=== PATIENT | male | born 1960 | race Caucasian/White ===

== ENCOUNTER 2018-05-19 09:11 | Outpatient (CLI) | payer OTHER ==
--- NOTE | 2018-05-19 13:06 | Ultrasound Report ---
Reason: EPIGASTRIC PAIN, RUQ PAIN Procedure Date: 05/19/2018 Accession Number: [id number] / [id number] Procedure: US - Abdomen Limited CPT Code: FULL RESULT: EXAM: ABDOMEN ULTRASOUND LIMITED, RUQ EXAM DATE: 05/19/2018 10:09 AM. CLINICAL HISTORY: Epigastric pain, RUQ pain. COMPARISON: None. TECHNIQUE: Real-time scanning was performed with static images obtained. FINDINGS: Liver: Hepatic parenchymal echotexture is mildly echogenic and heterogeneous. Within the left lobe of the liver is a 4.1 x 4.3 x 3.8 cm cyst and a 1.4 x 0.7 x 1.5 cm cyst containing septations. Within the right lobe of the liver is a superior right hepatic lobe 1.5 x 0.9 x 1.2 cm cyst and a 1.2 x 1.2 x 0.9 cm cyst and in the inferior right lobe a 1.6 x 2.0 x 1.7 cm cyst. No solid hepatic lesions. The liver is upper normal in size 17.3 cm. Main portal vein flow: Hepatopetal. Gallbladder: 2 mobile gallstones are present in the gallbladder, the largest measuring 9 mm. No gallbladder wall thickening. Eccentric anterior gallbladder wall thickening measuring up to 8 mm without focal mass. No increased vascularity. 4 mm polyp is seen in the fundus of the gallbladder. Biliary System: CBD measures 3 mm. No intrahepatic or extrahepatic ductal dilatation. Other: Right kidney is normal in contour and echotexture and measures 11.3 cm. Exophytic anterior mid right renal 1.2 x 1.2 x 1.1 cm cyst is seen. No hydronephrosis. IMPRESSION: 1. Mildly echogenic and heterogeneous hepatic parenchyma. Findings, while nonspecific, can be seen with fatty replacement. Hepatic cysts. No solid hepatic lesions. 2. Cholelithiasis and gallbladder polyp. 3. No biliary ductal dilatation. 4. Right renal 1.2 cm cyst. RADIA
== END 2018-05-19 09:12 | disposition home or self-care (01) ==
LOC: DI 09:11
PROVIDERS: ATTEND Surgery
DX: R10.11 Right upper quadrant pain (principal); R10.13 Epigastric pain; K80.20 Calculus of gallbladder without cholecystitis without obstruction; K76.89 Other specified diseases of liver; N28.1 Cyst of kidney, acquired
CPT/HCPCS: 76705

== ENCOUNTER 2018-06-23 09:03 | Day surgery (SDC) | payer OTHER ==
--- NOTE | 2018-06-23 09:39 | ANESTHESIA ---
Pre-Anesthesia VS, & Labs - Diagnosis cholelithiasis - Procedure laparoscopic cholecystecomy Vital Signs: Temp Pulse Resp BP Pulse Ox 36.8 C 80 16 132/91 H 100 06/23/18 09:13 06/23/18 09:13 06/23/18 09:13 06/23/18 09:13 06/23/18 09:13 Height 5 ft 9 in Weight (kg) 87.5 kg - NPO >8 hours - Lab Results Lab results reviewed: Yes Home Medications and Allergies Allergies/Adverse Reactions: Allergies Allergy/AdvReac Type Severity Reaction Status Date / Time codeine AdvReac Nausea Verified 06/22/18 14:16 Anes History & Medical History - Anesthetic History Anesthesia Complications: reports: Post-Operative Nausea/Vomiting Family history of Anesthesia Complications: Denies Family history of Malignant Hyperthermia: Denies - Medical History Cardiovascular: reports: None Pulmonary: reports: None Gastrointestinal: reports: Cholelithiasis Urinary: reports: None Musculoskeletal: reports: None Endocrine/Autoimmune: reports: None Skin: reports: None - Surgical History General: Colonoscopy, Other Eyes Ears Nose Throat (EENT): Tonsil/Adenoidectomy Exam General: Alert Dental: Other (crown) Mouth Openin Fingerbreadth Neck Mobility: Normal Mallampati classification: II Thyromental Distance: greater than 6 cm Respiratory: Lungs clear, Normal breath sounds, No respiratory distress, No accessory muscle use Cardiovascular: Regular rate, Normal S1, Normal S2, No murmurs Mental/Cognitive Status: Alert/Oriented X3, Normal for patient Cognitive Status: Within normal limits Plan Anesthesia Type: General Consent for Procedure(s) Verified and Reviewed: Yes Code Status: Attempt Resuscitation ASA classification: 1-Healthy patient Is this case an emergency?: No
[2018-06-23] MEDS ORDERED: LACTATED RINGERS 1,000 ML IV ONE ×2 (09:42→13:09)
[2018-06-23] MEDS ORDERED: ceFAZolin 2 GM/50 ML 2 GM/50 ML BAG IV ONE ×2 (09:48→09:49)
[2018-06-23] MEDS ORDERED: SCOPOLAMINE PATCH TOP ONE (10:02)
[2018-06-23] MEDS ORDERED: BUPIVACAINE 0.5% PF 30 ML VIAL ONE (11:04)
[2018-06-23] MEDS ORDERED: HYDROCORTISONE SUCCINATE 100 MG/2 ML VIAL IVP ONE (12:00)
[2018-06-23] MEDS ORDERED: KETOROLAC 30 MG/ML VIAL IVP ONE (12:00)
[2018-06-23] MEDS ORDERED: ONDANSETRON 4 MG/2 ML VIAL IVP ONE (12:00)
[2018-06-23] MEDS ORDERED: ACETAMINOPHEN 1,000 MG/100 ML 100 ML IV ONE (12:00)
[2018-06-23] MEDS ORDERED: fentaNYL 100 MCG/2 ML VIAL IVP ONE (12:00)
[2018-06-23] MEDS ORDERED: PROPOFOL 200 MG/20 ML VIAL IVP ONE (12:00)
[2018-06-23] MEDS ORDERED: LIDOCAINE-MPF 2% 5 ML VIAL IM ONE (12:00)
[2018-06-23] MEDS ORDERED: MIDAZOLAM 2 MG/2 ML VIAL IVP ONE (12:00)
[2018-06-23] MEDS ORDERED: DEXAMETHASONE 4 MG/ML VIAL IVP ONE (12:00)
[2018-06-23] MEDS ORDERED: BUPIVACAINE 0.25% PF 30 ML VIAL SUBQ ONE ×2 (12:02)
[2018-06-23] MEDS ORDERED: ONDANSETRON 4 MG/2 ML VIAL IVP PRN (12:57)
[2018-06-23] MEDS ORDERED: HYDROmorphone 0.5 MG/0.5 ML SYRINGE IVP PRN (12:57)
[2018-06-23] MEDS ORDERED: HYDROcod/ACETAM 5/325 MG TABLET PO PRN (12:57)
--- NOTE | 2018-06-23 13:00 | OPERATIVE REPORT ---
Operative Report - General Procedure Date: 06/23/18 Planned Procedure: Laparoscopic cholecystectomy and umbilical herniorrhaphy Pre-Op Diagnosis: Symptomatic cholelithiasis, gallbladder polyp, umbilical hernia Procedure Performed: Laparoscopic cholecystectomy and umbilical herniorrhaphy Post Op Diagnosis: Symptomatic cholelithiasis, gallbladder polyp, umbilical hernia - Procedure Note Primary Surgeon: Evelio Persaud MD Anesthesia Provider: Sissy Medina CRNA Anesthesia Technique: General ET tube IV Fluids (mL): 800 Estimated Blood Loss (mL): 10 Complications: None - Other Other Information/Narrative: OPERATIVE DESCRIPTION/REPORT: After verbal and written informed consent was obtained detailing the risks of infection, bleeding with all of its risks including transfusion, common bile duct injury, and the patient was brought to the operative suite and placed in the supine position on the operating room table. Monitoring devices were applied along with TEDs and pneumatic compressive stockings. Care was taken to avoid pressure points. Prophylactic antibiotics were given. An adequate level of general endotracheal anesthesia was established by Sissy Medina CRNA. The abdomen was then prepped with ChloraPrep and draped in a sterile fashion. A "time in" then confirmed that the patient was identified with 3 identifiers (name, date and medical record number), the history and physical was in the chart, the signed consent confirming the procedure was in the chart, the patient was in the correct position, the aforementioned prophylactic measures were in place or given, we had the correct personnel and equipment to complete the procedure and that anesthesia, surgery and nursing were given an opportunity to express any concerns. The initial incision was at the umbilicus and dissection to a small umbilical hernia was completed using blunt dissection. The fascia on either side was grasped with a Regine the peritoneum was grasped and incised using Metzenbaum scissors. In this location, a 12 mm blunt tipped, balloon tipped port was placed and the balloon was inflated to keep the port in position. The abdominal cavity was insufflated with carbon dioxide to steady-state pressure of 15 mmHg. Three additional 5 mm ports were placed in standard location for laparoscopic cholecystectomy (subxiphoid and 2 right subcostal) under direct vision of the 30 degree laparoscope and without incident. The patient was then placed in reverse Trendelenburg position and was rotated slightly to their left. The gallbladder fundus was grasped with an atraumatic grasper. Multiple a dhesions had to be taken down by blunt and sharp dissection along with electrocautery. Eventually, we identified the infundibulum, and this was then grasped and retracted inferior and laterally. Dissection was then begun in the angle of Calot. The cystic duct and (slightly medially and posteriorly) cystic artery were clearly identified. The critical view was obtained. Two clips proximally and one clip distally were used to control both the cystic duct and cystic artery. The clips were carefully placed to avoid occluding the juncture with the common bile duct. Both the cystic duct and then the cystic artery were then transected with laparoscopic susie. The gallbladder was then removed from its fossa in a retrograde fashion using electrocautery. With the 30 degree 5 mm scope in the subxiphoid position, the gallbladder was placed in an EndoCatch bag to be extracted through the 12 mm port site. I irrigated the right upper quadrant with a liter of warm sterile saline, and the area was aspirated dry. I inspected the gallbladder fossa and there was no bleeding or bile leak. Clips on the cystic duct and cystic artery appeared to be secure. I briefly visually explored the abdomen. There was no other evidence of overt pathology. I injected the port sites at the peritoneal, fascial, and skin levels under direct vision with 0.5% Marcaine. All ports and the EndoCatch containing the gallbladder were removed. Following gallbladder removal, the remaining carbon dioxide was expelled from the abdomen. The fascia at the umbilicus was reapproximated using 2 [id number]-oc-alfcr 0 Vicryl sutures thus repairing the umbilical hernia. The skin at each port site was approximated using a subcuticular 4-0 Monocryl. The surgical count of instruments, needles and sponges was reported as correct twice. Mastisol, Steri-Strips and sterile surgical dressings were applied. The patient was then awakened from anesthesia, extubated, and having tolerated the procedure well, was transported to the recovery room. No complications were encountered. A "time out" confirmed the operation performed, the fluids given, the estimated blood loss and anesthesia, surgery and nursing were given an opportunity to express any concerns. [employer] disclaimer: This document was created in part using voice recognition technology. Because of the inherent limitations of the system ([employer]'s [employer] user manual states that the licensee understands that speech recognition is a statistical process and that recognition errors are inherent in the process), occasional same sounding word substitutions and grammatical errors do occur and persist despite proofreading. Please read this document for context.
[2018-06-23] MEDS ORDERED: KETOROLAC 30 MG/ML VIAL ONE (13:20)
[2018-06-23] MEDS: fentaNYL 100 MCG/2 ML VIAL ONE ×2 (13:37→13:42)
[2018-06-23 14:23] VITALS: BP 122/75
== END 2018-06-23 09:04 | disposition home or self-care (01) ==
LOC: SDS 09:03
PROVIDERS: ATTEND Surgery
PROC: 0FT44ZZ Resection of Gallbladder, Percutaneous Endoscopic Approach (ICD-10-PCS; principal; 2018-06-23 10:15)
DX: K80.10 Calculus of gallbladder with chronic cholecystitis without obstruction (principal); K42.9 Umbilical hernia without obstruction or gangrene; K21.9 Gastro-esophageal reflux disease without esophagitis; Z87.891 Personal history of nicotine dependence
CPT/HCPCS: 47562; J0131; J0690; J3490; J7120

== ENCOUNTER 2019-09-01 08:20 | Outpatient (CLI) | payer OTHER ==
[2019-09-01 13:19] LABS: BASOPHILS # (AUTO) 0.1 10^3/uL (0.0-0.1); BASOPHILS % (AUTO) 1.6 %; EOSINOPHILS # (AUTO) 0.2 10^3/uL (0.0-0.7); EOSINOPHILS % (AUTO) 3.6 %; HGB - HEMOGLOBIN 14.2 g/dL (14.0-18.0); LYMPHOCYTES # (AUTO) 1.5 10^3/uL (1.5-3.5); MEAN CORPUSCULAR HEMOGLOBIN 29.4 pg (27.0-31.0); MEAN CORPUSCULAR HGB CONC 31.6 g/dL (32.0-36.0); MEAN PLATELET VOLUME 13.6 fL (7.4-11.4); MONOCYTES # (AUTO) 0.6 10^3/uL (0.0-1.0); MONOCYTES % (AUTO) 10.7 %; NEUTROPHILS # (AUTO) 3.1 10^3/uL (1.5-6.6); NEUTROPHILS % (AUTO) 55.7 %; PLT - PLATELET COUNT 213 10^3/uL (130-450); RED BLOOD COUNT 4.83 10^6/uL (4.70-6.10); RED CELL DISTRIBUTION WIDTH 14.3 % (12.0-15.0); WHITE BLOOD COUNT 5.5 x10^3/uL (4.8-10.8)
[2019-09-01 13:45] LABS: ALBUMIN/GLOBULIN RATIO 1.1 (1.0-2.2); ALKALINE PHOSPHATASE 452 IU/L (42-121); ALT ALANINE AMINOTRANSFERASE 735 IU/L (10-60); AST ASPARTATE AMINOTRANSFERASE 330 IU/L (10-42); BILIRUBIN,TOTAL 1.7 mg/dL (0.2-1.0); BUN - BLOOD UREA NITROGEN 21 mg/dL (6-20); CALCIUM 9.4 mg/dL (8.5-10.3); CARBON DIOXIDE - CO2 27 mmol/L (21-32); CHLORIDE 103 mmol/L (101-111); CHOL/HDL RATIO 4.2 (<5.0); CHOLESTEROL 303 mg/dL; GFR - MDRD 76 (>89); GLUCOSE 96 mg/dL (70-100); HDL CHOLESTEROL 72 mg/dL; LDL CHOLESTEROL,CALCULATED 207 mg/dL; LDL/HDL RATIO 2.9 (<3.6); SODIUM 139 mmol/L (135-145); TOTAL PROTEIN 7.5 g/dL (6.7-8.2); VLDL CHOLESTEROL 24 mg/dL
== END 2019-09-01 23:59 | disposition home or self-care (01) ==
LOC: LAB.WCP 08:20
PROVIDERS: ATTEND Family Medicine
DX: E78.5 Hyperlipidemia, unspecified (principal); Z12.5 Encounter for screening for malignant neoplasm of prostate
CPT/HCPCS: 36415; 80053; 80061; 83721; 84153; 84443; 85025

== ENCOUNTER 2019-09-02 09:40 | Outpatient (CLI) | payer OTHER ==
[2019-09-02 13:04] LABS: AMYLASE 63 U/L (28-100); LIPASE 28 U/L (22-51)
[2019-09-03 12:08] LABS: HEPATITIS A IGM NON-REACTIVE (NON-REACTIVE); HEPATITIS B SURFACE ANTIGEN NON-REACTIVE (NON-REACTIVE); HEPATITIS C ANTIBODY NON-REACTIVE (NON-REACTIVE)
== END 2019-09-02 23:59 | disposition home or self-care (01) ==
LOC: LAB.WCP 09:40
PROVIDERS: ATTEND Family Medicine
DX: R79.89 Other specified abnormal findings of blood chemistry (principal)
CPT/HCPCS: 36415; 80074; 82150; 83690

== ENCOUNTER 2019-09-06 06:52 | Outpatient (CLI) | payer OTHER ==
[2019-09-06] MEDS ORDERED: IOVERSOL 320 100 ML VIAL IVP ONE ×2 (07:06→11:33)
[2019-09-06] MEDS ORDERED: IOVERSOL 320 50 ML VIAL ONE (07:06)
--- NOTE | 2019-09-06 09:04 | CT Report ---
Reason: ELEVATED LFTS Procedure Date: 09/06/2019 Accession Number: [id number] / [id number] Procedure: CT - Abdomen/Pelvis W CPT Code: Final Report FULL RESULT: EXAM: CT ABDOMEN AND PELVIS EXAM DATE: 09/06/2019 08:14 AM. CLINICAL HISTORY: ELEVATED LFTS. COMPARISONS: ABDOMEN LIMITED 05/19/2018 9:23 AM. TECHNIQUE: Routine helical CT imaging was performed through the abdomen and pelvis. [address] was performed through the liver. IV contrast: OPTIRAY 320. Enteric contrast: Yes. Reconstructions: Coronal and sagittal. In accordance with CT protocol optimization, one or more of the following dose reduction techniques were utilized for this exam: automated exposure control, adjustment of mA and/or KV based on patient size, or use of iterative reconstructive technique. FINDINGS: Lung Bases: Unremarkable. Liver: Normal in size, contour, and enhancement. There are several circumscribed rounded hypodensities consistent with simple cysts with the largest measuring 5.0 cm in segment 2. Gallbladder/Bile Ducts: Gallbladder surgically absent. No biliary ductal dilatation. No radiopaque choledocholithiasis. Spleen: Normal. Pancreas: Normal. Adrenal Glands: Normal. Kidneys: There are 0.6 cm medial upper pole and 1.6 cm anterior mid pole simple right renal cortical cysts. Otherwise unremarkable. Peritoneal Cavity/Bowel: Stomach and small bowel are nondistended and unremarkable. There is a loop of small bowel extending into a 3 x 4 x 5 cm umbilical hernia without obstruction. The appendix is normal. There is mild descending and sigmoid colon diverticulosis. There is no focal pericolonic fat stranding or sahra colonic wall thickening. There is no lymphadenopathy, ascites, or pneumoperitoneum. Pelvic Organs: Small volume bladder. Prostate gland and seminal vesicles unremarkable. Vasculature: Minimal aortoiliac atherosclerotic calcification. Bilateral pelvic phleboliths. Bones: No significant abnormality. Other: None. IMPRESSION: 1. Simple liver cysts measuring up to 5 cm. Liver otherwise is normal in appearance. 2. Gallbladder surgically absent. No biliary ductal dilatation. 3. 3 x 4 x 5 cm umbilical hernia containing a nonobstructed loop of small bowel. RADIA
[2019-09-06] MEDS ORDERED: IOVERSOL 320 50 ML VIAL PO ONE (11:33)
== END 2019-09-06 06:53 | disposition home or self-care (01) ==
LOC: DI 06:52
PROVIDERS: ATTEND Family Medicine
DX: K76.89 Other specified diseases of liver (principal); K42.9 Umbilical hernia without obstruction or gangrene; Z90.49 Acquired absence of other specified parts of digestive tract
CPT/HCPCS: 74177; Q9967

== ENCOUNTER 2019-09-08 08:00 | Outpatient (CLI) | payer OTHER | END 2019-09-08 23:59 | disposition home or self-care (01) | LOC: LAB.R 08:00 | PROVIDERS: ATTEND Physician Assistant Medical | DX: R30.0 Dysuria (principal) | CPT/HCPCS: 87086 ==

== ENCOUNTER 2019-09-10 07:51 | Outpatient (CLI) | payer OTHER ==
[2019-09-10 13:56] LABS: ALBUMIN 3.8 g/dL (3.2-5.5); ALBUMIN/GLOBULIN RATIO 1.2 (1.0-2.2); CALCIUM 9.2 mg/dL (8.5-10.3); CREATININE 0.9 mg/dL (0.6-1.2); TOTAL PROTEIN 7.1 g/dL (6.7-8.2)
== END 2019-09-10 23:59 | disposition home or self-care (01) ==
LOC: LAB.WCP 07:51
PROVIDERS: ATTEND Physician Assistant Medical
DX: R79.89 Other specified abnormal findings of blood chemistry (principal)
CPT/HCPCS: 36415; 80053

== ENCOUNTER 2019-10-30 09:19 | Outpatient (CLI) | payer OTHER ==
[2019-10-30 09:39] LABS: BASOPHILS # (AUTO) 0.1 10^3/uL (0.0-0.1); BASOPHILS % (AUTO) 0.9 %; EOSINOPHILS # (AUTO) 0.1 10^3/uL (0.0-0.7); HGB - HEMOGLOBIN 14.9 g/dL (14.0-18.0); LYMPHOCYTES # (AUTO) 1.1 10^3/uL (1.5-3.5); LYMPHOCYTES % (AUTO) 18.4 %; MEAN CORPUSCULAR HEMOGLOBIN 29.9 pg (27.0-31.0); MEAN CORPUSCULAR HGB CONC 33.6 g/dL (32.0-36.0); MEAN CORPUSCULAR VOLUME 88.8 fL (80.0-94.0); MEAN PLATELET VOLUME 12.3 fL (7.4-11.4); MONOCYTES # (AUTO) 0.5 10^3/uL (0.0-1.0); MONOCYTES % (AUTO) 8.2 %; NEUTROPHILS # (AUTO) 4.1 10^3/uL (1.5-6.6); NEUTROPHILS % (AUTO) 70.2 %; PLT - PLATELET COUNT 211 10^3/uL (130-450); RED BLOOD COUNT 4.99 10^6/uL (4.70-6.10); WHITE BLOOD COUNT 5.9 x10^3/uL (4.8-10.8)
[2019-10-30 10:19] LABS: ALBUMIN 3.8 g/dL (3.2-5.5); ALBUMIN/GLOBULIN RATIO 0.9 (1.0-2.2); BILIRUBIN,TOTAL 10.3 mg/dL (0.2-1.0); CALCIUM 9.6 mg/dL (8.5-10.3); CREATININE 0.8 mg/dL (0.6-1.2); TOTAL PROTEIN 7.9 g/dL (6.7-8.2)
--- NOTE | 2019-10-30 12:13 | Ultrasound Report ---
Reason: ELEVATED LFT'S Procedure Date: 10/30/2019 Accession Number: [id number] / [id number] Procedure: US - Abdomen Complete CPT Code: Final Report FULL RESULT: EXAM: ABDOMEN ULTRASOUND COMPLETE EXAM DATE: 10/30/2019 11:12 AM. CLINICAL HISTORY: Elevated LFTs. COMPARISON: ABDOMEN/PELVIS W/ 09/06/2019 8:16 AM. TECHNIQUE: Real-time scanning was performed with static images obtained. FINDINGS: Liver: Normal size, normal echotexture. Liver is 15 cm in length. Left lower lobe shows a 4.4 x 4.8 x 5.0 cm cyst, similar to the CT. Also noted is some intrahepatic bile duct distention. Liver is 15 cm. Main portal vein flow: Hepatopetal. Gallbladder: Gallbladder surgically absent. Right upper quadrant is nontender with transducer pressure. Biliary System: CBD measures 10 mm. This is similar to the measurement from the 09/06/[address] Pancreas not well seen secondary to gas, no large masses. Right kidney is 10.1 cm with benign-appearing exophytic cyst measuring 1.1 x 1.2 x 1.3 cm, similar to the appearance on CT. Left kidney is 11.7 cm from top to bottom, normal. Spleen is 11 cm from top to bottom, no masses. Aorta measures up to 2.4 cm proximally. No aneurysm. IVC is normal. Other: None. IMPRESSION: 1. Some intrahepatic and extrahepatic bile duct distention is present. No masses are noted. This appearance is similar to the CT from 09/06/2019. Stable left lobe of liver cyst also noted. RADIA
== END 2019-10-30 09:20 | disposition home or self-care (01) ==
LOC: DI 09:19
PROVIDERS: ATTEND Physician Assistant
DX: K76.89 Other specified diseases of liver (principal); R94.5 Abnormal results of liver function studies; Z90.49 Acquired absence of other specified parts of digestive tract
CPT/HCPCS: 36415; 76700; 80053; 85025

== ENCOUNTER 2019-10-30 09:27 | Outpatient (CLI) | payer OTHER | END 2019-10-30 09:28 | disposition home or self-care (01) | LOC: LAB 09:27 | PROVIDERS: ATTEND Physician Assistant | DX: R79.89 Other specified abnormal findings of blood chemistry (principal) ==

== ENCOUNTER 2019-12-23 14:35 | Outpatient (CLI) | payer OTHER | END 2019-12-23 14:36 | disposition home or self-care (01) | LOC: COV 14:35 | PROVIDERS: ATTEND Surgery | DX: Z01.812 Encounter for preprocedural laboratory examination (principal); K43.0 Incisional hernia with obstruction, without gangrene | CPT/HCPCS: 81599 ==

== ENCOUNTER 2019-12-27 07:58 | Day surgery (SDC) | payer OTHER ==
[2019-12-27] MEDS ORDERED: LACTATED RINGERS 1,000 ML IV ONE ×2 (08:04→10:29)
[2019-12-27] MEDS ORDERED: LIDOCAINE 1%-EPI 1:100000 20 ML MDV SUBQ ONE (08:23)
[2019-12-27] MEDS ORDERED: BUPIVACAINE 0.5% PF 30 ML VIAL INFIL ONE (08:23)
[2019-12-27] MEDS ORDERED: LIDOCAINE 1%-EPI 1:100000 20 ML MDV ONE (08:24)
[2019-12-27] MEDS ORDERED: BUPIVACAINE 0.5% PF 30 ML VIAL ONE (08:24)
--- NOTE | 2019-12-27 08:25 | ANESTHESIA ---
Pre-Anesthesia VS, & Labs - Diagnosis incisional hernia - Procedure Incisional hernia repair Vital Signs: Temp Pulse Resp BP Pulse Ox 36.6 C 73 18 152/80 H 100 12/27/19 08:02 12/27/19 08:02 12/27/19 08:02 12/27/19 08:02 12/27/19 08:02 Height 5 ft 10 in Weight (kg) 90 kg - NPO >8 hours Home Medications and Allergies Allergies/Adverse Reactions: Allergies Allergy/AdvReac Type Severity Reaction Status Date / Time codeine AdvReac Nausea, Verified 10/05/19 11:09 vomiting Anes History & Medical History - Anesthetic History Anesthesia Complications: reports: Post-Operative Nausea/Vomiting - Medical History Cardiovascular: reports: None Pulmonary: reports: None Gastrointestinal: reports: None Urinary: reports: None Neuro: reports: None Musculoskeletal: reports: None Endocrine/Autoimmune: reports: None Blood Disorders: reports: None Skin: reports: None Smoking Status: Never smoker Psychosocial: reports: No issues indicated - Surgical History General: Cholecystectomy, Colonoscopy, Other Eyes Ears Nose Throat (EENT): Tonsil/Adenoidectomy Exam General: Alert, Oriented x3, Cooperative, No acute distress Dental: WNL Mouth Openin Fingerbreadth Neck Mobility: Normal Mallampati classification: II Thyromental Distance: greater than 6 cm Respiratory: Lungs clear, Normal breath sounds, No respiratory distress, No accessory muscle use Cardiovascular: Regular rate, Normal S1, Normal S2, No murmurs Mental/Cognitive Status: Alert/Oriented X3, Normal for patient Plan Anesthesia Type: General Consent for Procedure(s) Verified and Reviewed: Yes Code Status: Attempt Resuscitation ASA classification: 1-Healthy patient Is this case an emergency?: No
[2019-12-27] MEDS ORDERED: CEFAZOLIN SODIUM IN 0.9 % NACL 2 GM/100 ML BAG IV ONE (08:30)
[2019-12-27] MEDS ORDERED: ceFAZolin 1 GM VIAL ONE (08:39)
--- NOTE | 2019-12-27 09:38 | OPERATIVE REPORT ---
Operative Report - General Procedure Date: 12/27/19 Planned Procedure: Incisional hernia repair Pre-Op Diagnosis: Mid abdominal incisional hernia Procedure Performed: Incisional hernia repair Post Op Diagnosis: 5 cm mid abdominal incisional hernia - Procedure Note Primary Surgeon: Danna Anesthesia Provider: BISHNU Mann Anesthesia Technique: General LMA, Local Estimated Blood Loss (mL): 10 Indications: Incisional hernia with intermittant obstruction Findings: 5 cm transverse incisional hernia above the umbilicus Complications: None apparent - Other Other Information/Narrative: After obtaining informed consent, the patient is brought to the operating room and placed in the supine position on the operating table. Following successful induction of general anesthesia, appropriate padding of all bony prominences, and placement appropriate monitors, the abdomen was prepped and draped in the standard surgical fashion. A timeout was held per scope protocol. All elements of the surgical safety checklist were followed before, during, and after the procedure. We began the procedure by infiltrating a mixture of local anesthetics around the incision site and the fascia around the hernia the existing incision was then reopened sharply and carried through the skin to reveal the hernia sac below. The hernia sac was then carefully dissected free from the overlying dermis and surrounding fascia. It was multiloculated with pockets and septations. For this reason I elected to amputate it and closed the peritoneum directly. This was done using an interrupted Vicryl suture. The wound was then checked for hemostasis. I elected to repair the hernia using interrupted Prolene sutures. These were laid in and tagged individually. An onlay patch of Prolene mesh was then dipped in Ancef solution and trimmed to fit the space. The final dimensions of the patch were 7 cm x 3 cm. The patch was laid on top of the repair. The Prolene sutures were brought through the patch and tied on top of the patch to hold it in place over the repair and to buttress the repair. The wound was checked for hemostasis. It was irrigated with warm saline solution containing Ancef and aspirated free of all fluid and particulate matter. Once we were satisfied,The bellybutton was reconstructed with 2-0 Vicryl suture. The incision was closed in layers with Vicryl Monocryl suture and Dermabond was applied to the skin. All sponge, needle, and instrument counts were correct at conclusion of the case. The patient was allowed awaken from anesthesia without difficulty and taken to the postanesthesia care unit in good condition.
[2019-12-27] MEDS ORDERED: IBUPROFEN 600 MG TABLET PO PRN (09:43)
[2019-12-27] MEDS ORDERED: oxyCODONE 5 MG TABLET PO PRN (09:43)
[2019-12-27] MEDS ORDERED: ONDANSETRON 4 MG/2 ML VIAL IVP PRN (09:43)
[2019-12-27] MEDS ORDERED: ACETAMINOPHEN 325 MG TABLET PO PRN (09:43)
[2019-12-27 10:36] VITALS: BP 139/86
== END 2019-12-27 07:59 | disposition home or self-care (01) ==
LOC: SDS 07:58
PROVIDERS: ATTEND Surgery
DX: K43.0 Incisional hernia with obstruction, without gangrene (principal)
CPT/HCPCS: 49560; J0690; J7120

== ENCOUNTER 2020-02-11 11:52 | Outpatient (CLI) | payer OTHER | END 2020-02-11 11:53 | disposition home or self-care (01) | LOC: COV 11:52 | PROVIDERS: ATTEND Family Medicine | DX: Z01.818 Encounter for other preprocedural examination (principal); Z20.828 Contact with and (suspected) exposure to other viral communicable diseases ==

== ENCOUNTER 2020-08-01 08:37 | Outpatient (CLI) | payer OTHER ==
[2020-08-01 12:38] LABS: BASOPHILS # (AUTO) 0.1 10^3/uL (0.0-0.1); BASOPHILS % (AUTO) 1.1 %; EOSINOPHILS # (AUTO) 0.1 10^3/uL (0.0-0.7); EOSINOPHILS % (AUTO) 1.2 %; HGB - HEMOGLOBIN 15.3 g/dL (14.0-18.0); LYMPHOCYTES # (AUTO) 1.4 10^3/uL (1.5-3.5); LYMPHOCYTES % (AUTO) 25.2 %; MEAN CORPUSCULAR HEMOGLOBIN 29.6 pg (27.0-31.0); MEAN CORPUSCULAR HGB CONC 32.8 g/dL (32.0-36.0); MEAN CORPUSCULAR VOLUME 90.3 fL (80.0-94.0); MEAN PLATELET VOLUME 12.9 fL (7.4-11.4); MONOCYTES # (AUTO) 0.6 10^3/uL (0.0-1.0); MONOCYTES % (AUTO) 10.1 %; NEUTROPHILS # (AUTO) 3.5 10^3/uL (1.5-6.6); NEUTROPHILS % (AUTO) 62.2 %; PLT - PLATELET COUNT 197 10^3/uL (130-450); RED BLOOD COUNT 5.17 10^6/uL (4.70-6.10); RED CELL DISTRIBUTION WIDTH 12.6 % (12.0-15.0); WHITE BLOOD COUNT 5.7 x10^3/uL (4.8-10.8)
[2020-08-01 13:35] LABS: ALBUMIN/GLOBULIN RATIO 1.4 (1.0-2.2); ALKALINE PHOSPHATASE 68 IU/L (42-121); ALT ALANINE AMINOTRANSFERASE 23 IU/L (10-60); AST ASPARTATE AMINOTRANSFERASE 22 IU/L (10-42); BILIRUBIN,TOTAL 0.8 mg/dL (0.2-1.0); BUN - BLOOD UREA NITROGEN 14 mg/dL (6-20); CALCIUM 9.5 mg/dL (8.5-10.3); CARBON DIOXIDE - CO2 26 mmol/L (21-32); CHLORIDE 104 mmol/L (101-111); CHOL/HDL RATIO 5.2 (<5.0); CHOLESTEROL 266 mg/dL; CREATININE 0.8 mg/dL (0.6-1.2); GLUCOSE 94 mg/dL (70-100); HDL CHOLESTEROL 51 mg/dL; LDL CHOLESTEROL,CALCULATED 181 mg/dL; LDL/HDL RATIO 3.5 (<3.6); SODIUM 138 mmol/L (135-145); TOTAL PROTEIN 6.9 g/dL (6.7-8.2); VLDL CHOLESTEROL 34 mg/dL
== END 2020-08-01 23:59 | disposition home or self-care (01) ==
LOC: LAB.WCP 08:37
PROVIDERS: ATTEND Family Medicine
DX: Z00.00 Encounter for general adult medical examination without abnormal findings (principal); E80.6 Other disorders of bilirubin metabolism; E78.5 Hyperlipidemia, unspecified; R10.13 Epigastric pain; N42.81 Prostatodynia syndrome; R79.89 Other specified abnormal findings of blood chemistry
CPT/HCPCS: 36415; 80053; 80061; 83721; 84153; 84443; 85025

== ENCOUNTER 2020-09-20 07:00 | Outpatient (CLI) | payer OTHER ==
--- NOTE | 2020-09-20 17:38 | XRAY Report ---
PROCEDURE: Chest 2 View X-Ray INDICATIONS: RLL DECREASED BREATH SOUNDS TECHNIQUE: 2 view(s) of the chest. COMPARISON: None. FINDINGS: Surgical changes and devices: None. Lungs and pleura: No pleural effusions or pneumothorax. Linear left basilar opacity is present, like ly atelectasis. Mediastinum: Mediastinal contours are normal. Heart size is normal. Bones and chest wall: No suspicious bony abnormalities. Soft tissues appear unremarkable. IMPRESSION: No acute pulmonary process. Reviewed by: Treasure Tyler MD on 09/20/2020 4:37 PM [facility] Approved by: Treasure Tyler MD on 09/20/2020 4:37 PM [facility] Station ID: [id number]
== END 2020-09-20 23:59 | disposition home or self-care (01) ==
LOC: DI.WCP 07:00
PROVIDERS: ATTEND Physician Assistant Medical
DX: R09.89 Other specified symptoms and signs involving the circulatory and respiratory systems (principal)

== ENCOUNTER 2020-11-29 07:00 | Outpatient (CLI) | payer OTHER | END 2020-11-29 23:59 | disposition home or self-care (01) | LOC: LAB.N 07:00 | PROVIDERS: ATTEND Physician Assistant Medical | DX: R30.0 Dysuria (principal) | CPT/HCPCS: 87086 ==

== ENCOUNTER 2021-02-14 17:50 | Emergency (ER) | payer OTHER ==
[2021-02-14] MEDS ORDERED: SODIUM CHLORIDE 0.9% 1,000 ML IV STA (18:51)
[2021-02-14] MEDS ORDERED: HYDROmorphone 1 MG/ML CARPUJECT IVP STA (18:52)
[2021-02-14] MEDS ORDERED: ONDANSETRON 4 MG/2 ML VIAL IVP STA (18:52)
--- NOTE | 2021-02-14 18:58 | ED Physician Documentation ---
History of Present Illness - Stated complaint Stated Complaint: ABD PX - Chief complaint Chief Complaint: Abd Pain - Additonal information Additional information: Did undergo [id number] male presents emergency department for evaluation of what he thinks is an incarcerated hernia. Nominal hernia repair in December [address] Hamilton. This was a mesh repair. He reports that a few months after the surgery he noted that the hernia had developed again. He typically wears a waist support when working to help prevent it from excessive bulge. Typically he is able to reduce it, Especially if he defecates. however today it became painful. he was unable to reduce it. He has been able to defecate. + nausea, no vomiting. no fevers Review of Systems Constitutional: reports: Reviewed and negative Nose: reports: Reviewed and negative Throat: reports: Reviewed and negative Cardiac: reports: Reviewed and negative Respiratory: reports: Reviewed and negative GI: reports: Abdominal Pain, Nausea. denies: Vomiting, Hematemesis, Bloody / black stool : denies: Dysuria, Frequency, Hesitancy Skin: denies: Rash, Lesions Musculoskeletal: reports: Reviewed and negative Neurologic: reports: Reviewed and negative PD PAST MEDICAL HISTORY - Past Medical History Cardiovascular: None Respiratory: None Neuro: None Endocrine/Autoimmune: None GI: None : None HEENT: None Psych: None Musculoskeletal: None Derm: None - Past Surgical History General: Cholecystectomy, Colonoscopy, Other HEENT: Tonsil/Adenoidectomy - Present Medications Home Medications: Ambulatory Orders Medication Instructions Recorded Confirmed Pravastatin [Pravachol] 40 mg ORAL DAILY 02/14/21 02/14/21 - Allergies Allergies/Adverse Reactions: Allergies Allergy/AdvReac Type Severity Reaction Status Date / Time codeine AdvReac Nausea, Verified 02/14/21 17:55 vomiting - Social History Smoking Status: Never smoker PD ED PE EXPANDED - General General: Alert, In Pain - Cardiac Cardiac: Regular Rate, Radial strong equal, Cap refill < 2 sec. No: Murmur Present - Respiratory Respiratory: Clear to ausultation marsha. No: Distress, Labored - Abdomen Abdomen: Normal Bowel sounds, Tender to palpation, Other (left periumbilical hernai 4 cm. tender but reducible. once reduced, it immediately pops back out. ) - Derm Derm: Normal color, Warm and dry. No: Rash - Extremities Extremities: Normal. No: Deformity, Tenderness - Neuro Neuro: Alert and Oriented X 3. No: Confused, Disoriented - GCS Eye Opening: Spontaneous Motor: Obeys Commands Verbal: Oriented Total: 15 Results - Vitals Vitals: Vital Signs - 24 hr 02/14/21 17:55 Temperature 36 C L Heart Rate 100 Respiratory 16 Rate Blood Pressure 154/84 H O2 Saturation 97 Oxygen O2 Source Room air - Labs Labs: Laboratory Tests 02/14/21 02/14/21 02/14/21 18:57 18:57 18:57 WBC 12.9 H RBC 5.35 Hgb 15.9 Hct 47.0 MCV 87.9 MCH 29.7 MCHC 33.8 RDW 12.7 Plt Count 217 MPV 12.5 H Neut # (Auto) 11.1 H Lymph # (Auto) 0.9 L Spencer # (Auto) 0.8 Eos # (Auto) 0.0 Baso # (Auto) 0.0 Absolute Nucleated RBC 0.00 Nucleated RBC % 0.0 Sodium 139 Potassium 3.8 Chloride 106 Carbon Dioxide 24 Anion Gap 9.0 BUN 21 H Creatinine 0.7 Estimated GFR (MDRD) 115 Glucose 139 H Lactic Acid 1.3 Calcium 9.5 Total Bilirubin 0.7 AST 21 ALT 23 Alkaline Phosphatase 71 Total Protein 7.9 Albumin 4.3 Globulin 3.6 Albumin/Globulin Ratio 1.2 Lipase 23 PD MEDICAL DECISION MAKING - ED course Complexity details: reviewed results, re-evaluated patient, d/w patient ED course: 61-year-old male presents the emergency department for evaluation of an incarcerated periumbilical hernia. He reports that when it becomes incarcerated he is typically able to reduce it either by pushing it it in himself or defecating. Today he has been unable to and he has been persistently nauseated. On exam I was able to reduce the hernia but as soon as he moved it became entrapped again and was quite tender therefore we proceeded to order screening labs as well as a CT of the abdomen and pelvis. While the labs were in process the patient vomited. He vomited peanuts that he had ingested about 24 hours ago. Once he vomited the hernia self reduced and he was now free of pain. I discussed the labs with the patient and his . There is mild leukocytosis but no other worrisome findings. Given that he is free of pain in the hernia is no longer present he deferred the CT scan today. He does have follow-up with Dr. Clay on the for reevaluation of this hernia and to discuss further surgical repair options. Emergent return precautions were discussed for concerns or worsening symptoms. Departure - Departure Disposition: Home, Self Care Clinical Impression: Periumbilical hernia Condition: Stable Record reviewed to determine appropriate education?: Yes Follow-Up: Zaria Clay MD [Provider Admit Priv/Credential] - Comments: Ernie you were seen today in the ER for an incarcerated umbilical hernia. We had plan to proceed with a CT scan of the abdomen as we had difficult time keeping the hernia reduced, however after you vomited, it fully reduced and you are now free of pain. Your screening labs today do not show any worrisome abnormality though your wh ite blood cell count is mildly elevated at 12.9. We sometimes see this in periods of stress. If at any point you find that your hernia becomes painful, cannot be reduced, you have fevers bloody stools uncontrolled vomiting or worsening pain please return to the ER for a second evaluation.
[2021-02-14 19:03] LABS: BASOPHILS % (AUTO) 0.2 %; EOSINOPHILS % (AUTO) 0.1 %; HGB - HEMOGLOBIN 15.9 g/dL (14.0-18.0); LYMPHOCYTES # (AUTO) 0.9 10^3/uL (1.5-3.5); LYMPHOCYTES % (AUTO) 7.2 %; MEAN CORPUSCULAR HEMOGLOBIN 29.7 pg (27.0-31.0); MEAN CORPUSCULAR HGB CONC 33.8 g/dL (32.0-36.0); MEAN CORPUSCULAR VOLUME 87.9 fL (80.0-94.0); MEAN PLATELET VOLUME 12.5 fL (7.4-11.4); MONOCYTES # (AUTO) 0.8 10^3/uL (0.0-1.0); MONOCYTES % (AUTO) 6.1 %; NEUTROPHILS # (AUTO) 11.1 10^3/uL (1.5-6.6); PLT - PLATELET COUNT 217 10^3/uL (130-450); RED BLOOD COUNT 5.35 10^6/uL (4.70-6.10); RED CELL DISTRIBUTION WIDTH 12.7 % (12.0-15.0); WHITE BLOOD COUNT 12.9 x10^3/uL (4.8-10.8)
[2021-02-14] MEDS ORDERED: IOVERSOL 320 100 ML VIAL IVP ONE (19:13)
[2021-02-14 19:16] LABS: ALBUMIN 4.3 g/dL (3.2-5.5); ALBUMIN/GLOBULIN RATIO 1.2 (1.0-2.2); BILIRUBIN,TOTAL 0.7 mg/dL (0.2-1.0); CALCIUM 9.5 mg/dL (8.5-10.3); CREATININE 0.7 mg/dL (0.6-1.2); POTASSIUM 3.8 mmol/L (3.5-5.0); TOTAL PROTEIN 7.9 g/dL (6.7-8.2)
[2021-02-14 19:50] VITALS: BP 140/75
== END 2021-02-14 19:50 | disposition home or self-care (01) ==
LOC: ED 17:50
DX: K42.0 Umbilical hernia with obstruction, without gangrene (principal); D72.829 Elevated white blood cell count, unspecified
CPT/HCPCS: 36415; 80053; 83605; 83690; 85025; 96361; 96374; 96375; 99283; 99284; J1170

== ENCOUNTER 2021-04-16 07:56 | Day surgery (SDC) | payer OTHER ==
[2021-04-16] MEDS ORDERED: LACTATED RINGERS 1,000 ML IV ONE ×2 (08:06→11:07)
[2021-04-16] MEDS ORDERED: ROCURONIUM 50 MG/5 ML VIAL ONE (08:42)
[2021-04-16] MEDS ORDERED: ONDANSETRON 4 MG/2 ML VIAL ONE (08:42)
[2021-04-16] MEDS ORDERED: fentaNYL 100 MCG/2 ML VIAL ONE ×2 (08:42→10:48)
[2021-04-16] MEDS ORDERED: KETOROLAC 30 MG/ML VIAL ONE (08:42)
[2021-04-16] MEDS ORDERED: PROPOFOL 200 MG/20 ML VIAL IVP ONE (08:42)
[2021-04-16] MEDS ORDERED: DEXAMETHASONE 4 MG/ML VIAL ONE (08:42)
[2021-04-16] MEDS ORDERED: LIDOCAINE-MPF 2% 5 ML VIAL ONE (08:42)
--- NOTE | 2021-04-16 08:49 | ANESTHESIA ---
Pre-Anesthesia VS, & Labs - Diagnosis L inguinal hernia, ventral hernia - Procedure Open ventral hernia repair, open L inguinal hernia repair Vital Signs: Temp Pulse Resp BP Pulse Ox 36.5 C 75 16 133/85 H 99 04/16/21 08:07 04/16/21 08:07 04/16/21 08:07 04/16/21 08:07 04/16/21 08:07 Height: 5 ft 9 in Weight (kg): 89.6 kg Body Mass Index: 29.1 BMI Classification: Overweight - NPO >8 hours - Lab Results Lab results reviewed: Yes Home Medications and Allergies Pravastatin [Pravachol] 40 mg ORAL DAILY 02/14/21 Allergies/Adverse Reactions: Allergies Allergy/AdvReac Type Severity Reaction Status Date / Time codeine AdvReac Nausea, Verified 02/14/21 17:55 vomiting Anes History & Medical History - Anesthetic History Anesthesia Complications: reports: No previous complications, Post-Operative Nausea/Vomiting (no emesis, just felt ill all afternoon after first hernia surgery , needed to "sleep it off") Family history of Anesthesia Complications: Denies Family history of Malignant Hyperthermia: Denies - Medical History Cardiovascular: reports: High cholesterol Pulmonary: reports: None Gastrointestinal: reports: None Urinary: reports: None Neuro: reports: None Musculoskeletal: reports: None Endocrine/Autoimmune: reports: None Blood Disorders: reports: None Skin: reports: None Smoking Status: Never smoker - Surgical History General: reports: Cholecystectomy, Colonoscopy, Other Eyes Ears Nose Throat (EENT): reports: Tonsil/Adenoidectomy Exam General: Alert, Oriented x3, Cooperative Dental: WNL Mouth Openin Fingerbreadth Neck Mobility: Normal Mallampati classification: II Thyromental Distance: 4-6 cm Respiratory: Lungs clear, Normal breath sounds, No respiratory distress Cardiovascular: Regular rate Abdomen: Normal bowel sounds Neurological: Normal speech Mental/Cognitive Status: Alert/Oriented X3, Normal for patient Cognitive Status: Within normal limits Plan Anesthesia Type: General Consent for Procedure(s) Verified and Reviewed: Yes Code Status: Attempt Resuscitation ASA classification: 2-Mild systemic disease Is this case an emergency?: No
[2021-04-16] MEDS ORDERED: HYDROmorphone 0.5 MG/0.5 ML SYRINGE IVP PRN (08:50)
[2021-04-16] MEDS ORDERED: fentaNYL 100 MCG/2 ML VIAL IVP PRN (08:50)
[2021-04-16] MEDS ORDERED: METOCLOPRAMIDE 10 MG/2 ML VIAL IVP PRN (08:50)
[2021-04-16] MEDS ORDERED: MORPHINE 2 MG/ML CARPUJECT IVP PRN (08:50)
[2021-04-16] MEDS ORDERED: ONDANSETRON 4 MG/2 ML VIAL IVP PRN ×2 (08:50→11:13)
[2021-04-16] MEDS ORDERED: NALOXONE 0.4 MG/ML VIAL IVP PRN (08:50)
[2021-04-16] MEDS ORDERED: ATROPINE ABBOJECT 1 MG/10 ML SYRINGE IVP PRN (08:50)
[2021-04-16] MEDS ORDERED: ePHEDrine 50 MG/ML VIAL IVP PRN (08:50)
[2021-04-16] MEDS ORDERED: LACTATED RINGERS 1,000 ML IV SCH (09:00)
[2021-04-16] MEDS ORDERED: CEFAZOLIN SODIUM IN 0.9 % NACL 2 GM/100 ML BAG IV ONE (09:29)
[2021-04-16] MEDS ORDERED: LIDOCAINE 2%-EPI 1:100000 20 ML MDV ONE (09:37)
[2021-04-16] MEDS ORDERED: ceFAZolin 1 GM VIAL ONE (09:38)
[2021-04-16] MEDS ORDERED: BUPIVACAINE 0.5% PF 10 ML VIAL ONE (09:38)
[2021-04-16] MEDS ORDERED: SODIUM CHLORIDE 0.9% 10 ML VIAL IVP ONE (09:44)
[2021-04-16] MEDS ORDERED: LIDOCAINE 2%-EPI 1:100000 20 ML MDV SUBQ ONE (10:02)
[2021-04-16] MEDS ORDERED: BUPIVACAINE 0.5% PF 10 ML VIAL SUBQ ONE (10:02)
[2021-04-16] MEDS ORDERED: ceFAZolin 1 GM VIAL IR ONE (10:03)
--- NOTE | 2021-04-16 11:10 | OPERATIVE REPORT ---
Operative Report - General Procedure Date: 04/16/21 Planned Procedure: Left Inguinal Hernia Recurrent Recurrent Incisional Hernia Repair Pre-Op Diagnosis: Left Inguinal Hernia, Recurrent incisonal hernia Procedure Performed: Left Inguinal Hernia Recurrent Recurrent Incisional Hernia Repair Post Op Diagnosis: Left Inguinal Hernia, Recurrent incisonal hernia - Procedure Note Primary Surgeon: Danna Anesthesia Provider: BISHNU Bonner Anesthesia Technique: General LMA Pathology: None Estimated Blood Loss (mL): 10 Findings: Large indirect left inguinal hernia 2 cm recurrent incisional hernia at the umbilicus Complications: None apparent - Other Other Information/Narrative: After obtaining informed consent, the patient is brought to the operating room and placed in the supine position on the operating table. Following successful induction of general endotracheal anesthesia, appropriate padding of all bony prominences, and placement of appropriate monitors, the abdomen was prepped and draped in the standard surgical fashion. A timeout was held per scope protocol. All elements of the surgical safety checklist were followed before, during, and after the procedure. We began the procedure by infiltrating a mixture of local anesthetics medial to the anterior superior iliac spine on the left. This was done to create an ileal inguinal nerve block. We then selected a site for an incision in the left lower quadrant just superior and lateral to the pubic tubercle. This area was anesthetized with additional local anesthetic and an incision was created here.The incision was carried down through the skin and subcutaneous tissue to reveal the fascia of the external oblique aponeurosis. Retractor was placed and the aponeurosis was opened in direction of its fibers. The ilioinguinal nerve was immediately identified. We continued by identifying the spermatic cord and gently encircling it with a Abida drain. The hernia sac was carefully dissected free from the cord structures and was noted to be in the inferior medial position. The sac was in the indirect position. We carefully dissected the spermatic cord from the sac. The hernia sac was then placed back into the abdominal cavity. We elected to repair the hernia with a large Prolene hernia system mesh implant. This was dipped in Ancef containing solution and then deployed into the defect. The posterior leaflet was straightened and flattened in the preperitoneal space. The anterior leaflet was then nicked medially to provide a place for the spermatic cord and then closed with a Vicryl suture. T he more inferior aspect was then sewn to Tyree's ligament medially. Laterally it was tucked under the external beak aponeurosis. The wound was checked for hemostasis and irrigated with warm saline solution. It was aspirated free of all fluid and particulate matter. The extra oblique aponeurosis was then closed with a running locking Vicryl suture Mekhi's fascia was closed with Vicryl suture and Monocryl stitches were placed in the skin. We turned our attention to the incisional repair. Following infiltration with local anesthetic to create a field block, an incision was created directly through the umbilicus and over the palpable and visible defect. This was carried through the skin and subcutaneous tissue. The umbilical tissue was then freed from the umbilical remnant for complete exposure to the hernia sack. The defect was noted to be approximately 2.5 cm in greatest dimension. The hernia sac itself was approximately 8 cm. The hernia sac was carefully dissected free from the overlying skin and underlying fascial tissue as well as the surrounding areolar tissue. The contents of the sac were eased back into the abdominal cavity without opening the peritoneum. The surgically was then inserted into the defect and the anterior abdominal wall palpated internally to be sure there was enough space for mesh placement. We elected to repair the defect with a 8 cm a portion of secure mesh. The mesh was dipped in Ancef solution and into the defect. It was straightened and flattened in the preperitoneal space. Placement was checked and adjusted. Once we were satisfied it was ideal, the tails were trimmed and sewn to the fascia anteriorly. The wound was checked for hemostasis and irrigated with Ancef containing solution The umbilicus was reconstructed with interrupted Vicryl suture. All sponge, needle, and instrument counts were correct at the conclusion of the case. The patient was allowed awaken from anesthesia without difficulty and taken to the postanesthesia care unit in good condition.
[2021-04-16] MEDS ORDERED: IBUPROFEN 600 MG TABLET PO PRN (11:13)
[2021-04-16] MEDS ORDERED: ACETAMINOPHEN 325 MG TABLET PO PRN (11:13)
[2021-04-16] MEDS ORDERED: oxyCODONE 5 MG TABLET PO PRN (11:13)
[2021-04-16 12:05] VITALS: BP 130/69
--- NOTE | 2021-04-16 14:22 | ANESTHESIA POST OP EVALUATION ---
Anesthesia Post Eval - Post Anesthesia Eval Vitals: Last Vital Signs Temp 36.8 C 04/16/21 12:05 Pulse 82 04/16/21 12:05 Resp 14 04/16/21 12:05 BP 130/69 04/16/21 12:05 Pulse Ox 95 04/16/21 12:05 CV Function Including HR & BP: Stable Pain Control: Satisfactory Nausea & Vomiting: Negative Mental Status: Baseline Respiratory Status: Airway Patent Hydration Status: Satisfactory Anesthesia Complications: None
== END 2021-04-16 07:57 | disposition home or self-care (01) ==
LOC: SDS 07:56
PROVIDERS: ATTEND Surgery
PROC: 0YU60JZ Supplement Left Inguinal Region with Synthetic Substitute, Open Approach (ICD-10-PCS; principal; 2021-04-16 09:00)
PROC: 0WUF0JZ Supplement Abdominal Wall with Synthetic Substitute, Open Approach (ICD-10-PCS; 2021-04-16 09:00)
DX: K40.91 Unilateral inguinal hernia, without obstruction or gangrene, recurrent (principal); K43.2 Incisional hernia without obstruction or gangrene
CPT/HCPCS: 49520; 49565; 49568; C1781; J0690; J7120

== ENCOUNTER 2021-07-17 08:00 | Outpatient (CLI) | payer OTHER ==
[2021-07-17 14:53] LABS: BASOPHILS % (AUTO) 0.5 %; EOSINOPHILS # (AUTO) 0.1 10^3/uL (0.0-0.7); EOSINOPHILS % (AUTO) 0.9 %; HCT - HEMATOCRIT 45.2 % (42.0-52.0); HGB - HEMOGLOBIN 14.6 g/dL (14.0-18.0); LYMPHOCYTES # (AUTO) 1.6 10^3/uL (1.5-3.5); LYMPHOCYTES % (AUTO) 25.1 %; MEAN CORPUSCULAR HEMOGLOBIN 29.3 pg (27.0-31.0); MEAN CORPUSCULAR HGB CONC 32.3 g/dL (32.0-36.0); MEAN CORPUSCULAR VOLUME 90.6 fL (80.0-94.0); MEAN PLATELET VOLUME 13.2 fL (7.4-11.4); MONOCYTES # (AUTO) 0.5 10^3/uL (0.0-1.0); MONOCYTES % (AUTO) 8.4 %; NEUTROPHILS # (AUTO) 4.1 10^3/uL (1.5-6.6); NEUTROPHILS % (AUTO) 64.8 %; PLT - PLATELET COUNT 206 10^3/uL (130-450); RED BLOOD COUNT 4.99 10^6/uL (4.70-6.10); RED CELL DISTRIBUTION WIDTH 13.2 % (12.0-15.0); WHITE BLOOD COUNT 6.3 x10^3/uL (4.8-10.8)
[2021-07-17 15:21] LABS: ALBUMIN 4.1 g/dL (3.2-5.5); ALBUMIN/GLOBULIN RATIO 1.3 (1.0-2.2); ALKALINE PHOSPHATASE 64 IU/L (42-121); ALT ALANINE AMINOTRANSFERASE 23 IU/L (10-60); AST ASPARTATE AMINOTRANSFERASE 23 IU/L (10-42); BILIRUBIN,TOTAL 0.6 mg/dL (0.2-1.0); BUN - BLOOD UREA NITROGEN 17 mg/dL (6-20); CALCIUM 9.1 mg/dL (8.5-10.3); CARBON DIOXIDE - CO2 26 mmol/L (21-32); CHLORIDE 102 mmol/L (101-111); CHOL/HDL RATIO 4.4 (<5.0); CHOLESTEROL 218 mg/dL; CREATININE 0.8 mg/dL (0.6-1.2); GFR - MDRD 98 (>89); GLUCOSE 99 mg/dL (70-100); HDL CHOLESTEROL 49 mg/dL; LDL CHOLESTEROL,CALCULATED 145 mg/dL; POTASSIUM 3.9 mmol/L (3.5-5.0); SODIUM 137 mmol/L (135-145); TOTAL PROTEIN 7.3 g/dL (6.7-8.2); TRIGLYCERIDES 119 mg/dL; VLDL CHOLESTEROL 24 mg/dL
[2021-07-17 15:28] LABS: THYROID STIMULATING HORMONE 3.78 uIU/mL (0.34-5.60)
== END 2021-07-17 23:59 | disposition home or self-care (01) ==
LOC: LAB.WCP 08:00
PROVIDERS: ATTEND Physician Assistant Medical
DX: E78.5 Hyperlipidemia, unspecified (principal); Z12.5 Encounter for screening for malignant neoplasm of prostate
CPT/HCPCS: 36415; 80053; 80061; 83721; 84153; 84443; 85025

== ENCOUNTER 2022-02-26 08:04 | Outpatient (CLI) | payer OTHER ==
[2022-02-26 13:13] LABS: CHOL/HDL RATIO 4.5 (<5.0); CHOLESTEROL 213 mg/dL; HDL CHOLESTEROL 47 mg/dL; LDL CHOLESTEROL,CALCULATED 145 mg/dL; LDL/HDL RATIO 3.1 (<3.6); TRIGLYCERIDES 107 mg/dL; VLDL CHOLESTEROL 21 mg/dL
== END 2022-02-26 08:05 | disposition home or self-care (01) ==
LOC: LAB.N 08:04
PROVIDERS: ATTEND Physician Assistant Medical
DX: E78.5 Hyperlipidemia, unspecified (principal)
CPT/HCPCS: 36415; 80061; 83721

== ENCOUNTER 2022-06-25 08:10 | Outpatient (CLI) | payer OTHER ==
[2022-06-25 11:59] LABS: BASOPHILS # (AUTO) 0.1 10^3/uL (0.0-0.1); BASOPHILS % (AUTO) 0.8 %; EOSINOPHILS # (AUTO) 0.1 10^3/uL (0.0-0.7); EOSINOPHILS % (AUTO) 1.3 %; HCT - HEMATOCRIT 45.2 % (42.0-52.0); HGB - HEMOGLOBIN 14.8 g/dL (14.0-18.0); LYMPHOCYTES # (AUTO) 1.6 10^3/uL (1.5-3.5); LYMPHOCYTES % (AUTO) 25.7 %; MEAN CORPUSCULAR HEMOGLOBIN 29.2 pg (27.0-31.0); MEAN CORPUSCULAR HGB CONC 32.7 g/dL (32.0-36.0); MEAN CORPUSCULAR VOLUME 89.2 fL (80.0-94.0); MEAN PLATELET VOLUME 12.8 fL (7.4-11.4); MONOCYTES # (AUTO) 0.6 10^3/uL (0.0-1.0); MONOCYTES % (AUTO) 10.2 %; NEUTROPHILS # (AUTO) 3.8 10^3/uL (1.5-6.6); NEUTROPHILS % (AUTO) 61.8 %; PLT - PLATELET COUNT 201 10^3/uL (130-450); RED BLOOD COUNT 5.07 10^6/uL (4.70-6.10); RED CELL DISTRIBUTION WIDTH 13.1 % (12.0-15.0); WHITE BLOOD COUNT 6.2 x10^3/uL (4.8-10.8)
[2022-06-25 12:22] LABS: ALBUMIN 4.1 g/dL (3.2-5.5); ALBUMIN/GLOBULIN RATIO 1.2 (1.0-2.2); ALKALINE PHOSPHATASE 61 IU/L (42-121); ALT ALANINE AMINOTRANSFERASE 23 IU/L (10-60); AST ASPARTATE AMINOTRANSFERASE 25 IU/L (10-42); BILIRUBIN,TOTAL 0.6 mg/dL (0.2-1.0); BUN - BLOOD UREA NITROGEN 17 mg/dL (6-20); CALCIUM 9.3 mg/dL (8.5-10.3); CARBON DIOXIDE - CO2 27 mmol/L (21-32); CHLORIDE 103 mmol/L (101-111); CHOL/HDL RATIO 4.3 (<5.0); CHOLESTEROL 222 mg/dL; CREATININE 0.8 mg/dL (0.6-1.2); GFR - MDRD 98 (>89); GLUCOSE 100 mg/dL (70-100); HDL CHOLESTEROL 52 mg/dL; LDL CHOLESTEROL,CALCULATED 150 mg/dL; LDL/HDL RATIO 2.9 (<3.6); POTASSIUM 4.2 mmol/L (3.5-5.0); SODIUM 139 mmol/L (135-145); TOTAL PROTEIN 7.4 g/dL (6.7-8.2); TRIGLYCERIDES 99 mg/dL; VLDL CHOLESTEROL 20 mg/dL
[2022-06-25 12:28] LABS: THYROID STIMULATING HORMONE 5.22 uIU/mL (0.34-5.60)
== END 2022-06-25 08:11 | disposition home or self-care (01) ==
LOC: LAB.N 08:10
PROVIDERS: ATTEND Physician Assistant Medical
DX: Z00.00 Encounter for general adult medical examination without abnormal findings (principal); E78.5 Hyperlipidemia, unspecified; Z12.5 Encounter for screening for malignant neoplasm of prostate
CPT/HCPCS: 36415; 80053; 80061; 83721; 84153; 84443; 85025

== ENCOUNTER 2024-01-27 09:16 | Outpatient (CLI) | payer OTHER ==
[2024-01-27 12:15] LABS: BASOPHILS # (AUTO) 0.1 10^3/uL (0.0-0.1); BASOPHILS % (AUTO) 1.2 %; EOSINOPHILS # (AUTO) 0.1 10^3/uL (0.0-0.7); HCT - HEMATOCRIT 41.8 % (42.0-52.0); HGB - HEMOGLOBIN 13.6 g/dL (14.0-18.0); LYMPHOCYTES # (AUTO) 0.9 10^3/uL (1.5-3.5); LYMPHOCYTES % (AUTO) 22.2 %; MEAN CORPUSCULAR HEMOGLOBIN 29.2 pg (27.0-31.0); MEAN CORPUSCULAR HGB CONC 32.5 g/dL (32.0-36.0); MEAN CORPUSCULAR VOLUME 89.7 fL (80.0-94.0); MEAN PLATELET VOLUME 14.8 fL (7.4-11.4); MONOCYTES # (AUTO) 0.4 10^3/uL (0.0-1.0); NEUTROPHILS # (AUTO) 2.6 10^3/uL (1.5-6.6); NEUTROPHILS % (AUTO) 64.6 %; PLT - PLATELET COUNT 126 10^3/uL (130-450); RED BLOOD COUNT 4.66 10^6/uL (4.70-6.10); RED CELL DISTRIBUTION WIDTH 15.3 % (12.0-15.0)
[2024-01-27 13:05] LABS: ALBUMIN 3.7 g/dL (3.2-5.5); ALBUMIN/GLOBULIN RATIO 1.2 (1.0-2.2); BILIRUBIN,TOTAL 6.2 mg/dL (0.2-1.0); CALCIUM 9.6 mg/dL (8.5-10.3); CREATININE 0.9 mg/dL (0.6-1.3); POTASSIUM 3.9 mmol/L (3.5-4.5); TOTAL PROTEIN 6.7 g/dL (6.4-8.9)
== END 2024-01-27 09:17 | disposition home or self-care (01) ==
LOC: LAB.N 09:16
PROVIDERS: ATTEND Nurse Practitioner
DX: R10.11 Right upper quadrant pain (principal); M79.10 Myalgia, unspecified site
CPT/HCPCS: 36415; 80053; 81001; 82150; 82550; 83690; 85025; 87086

== ENCOUNTER 2024-03-02 10:53 | Outpatient (CLI) | payer OTHER ==
[2024-03-02 19:16] LABS: BASOPHILS # (AUTO) 0.1 10^3/uL (0.0-0.1); EOSINOPHILS # (AUTO) 0.1 10^3/uL (0.0-0.7); HCT - HEMATOCRIT 38.2 % (42.0-52.0); LYMPHOCYTES # (AUTO) 0.9 10^3/uL (1.5-3.5); LYMPHOCYTES % (AUTO) 19.1 %; MEAN CORPUSCULAR HEMOGLOBIN 29.2 pg (27.0-31.0); MEAN CORPUSCULAR HGB CONC 31.4 g/dL (32.0-36.0); MEAN CORPUSCULAR VOLUME 92.9 fL (80.0-94.0); MEAN PLATELET VOLUME 13.7 fL (7.4-11.4); MONOCYTES # (AUTO) 0.4 10^3/uL (0.0-1.0); MONOCYTES % (AUTO) 7.9 %; NEUTROPHILS # (AUTO) 3.5 10^3/uL (1.5-6.6); NEUTROPHILS % (AUTO) 70.8 %; PLT - PLATELET COUNT 219 10^3/uL (130-450); RED BLOOD COUNT 4.11 10^6/uL (4.70-6.10); RED CELL DISTRIBUTION WIDTH 14.9 % (12.0-15.0); WHITE BLOOD COUNT 4.9 x10^3/uL (4.8-10.8)
[2024-03-02 19:36] LABS: ALBUMIN 3.6 g/dL (3.2-5.5); ALKALINE PHOSPHATASE 690 IU/L (42-121); ALT ALANINE AMINOTRANSFERASE 160 IU/L (10-60); AST ASPARTATE AMINOTRANSFERASE 126 IU/L (10-42); BILIRUBIN,TOTAL 1.8 mg/dL (0.2-1.0); BUN - BLOOD UREA NITROGEN 13 mg/dL (6-20); CALCIUM 9.3 mg/dL (8.5-10.3); CARBON DIOXIDE - CO2 27 mmol/L (21-32); CHLORIDE 101 mmol/L (101-111); CHOL/HDL RATIO 5.2 (<5.0); CHOLESTEROL 204 mg/dL; CREATININE 0.7 mg/dL (0.6-1.3); GFR - MDRD 114 (>89); GLUCOSE 127 mg/dL (74-104); HDL CHOLESTEROL 39 mg/dL; LDL CHOLESTEROL,CALCULATED 148 mg/dL; LDL/HDL RATIO 3.8 (<3.6); POTASSIUM 3.9 mmol/L (3.5-4.5); SODIUM 135 mmol/L (135-145); TOTAL PROTEIN 7.2 g/dL (6.4-8.9); TRIGLYCERIDES 86 mg/dL; VLDL CHOLESTEROL 17 mg/dL
[2024-03-02 19:53] LABS: THYROID STIMULATING HORMONE 1.98 uIU/mL (0.34-5.60)
== END 2024-03-02 10:54 | disposition home or self-care (01) ==
LOC: LAB.N 10:53
PROVIDERS: ATTEND Physician Assistant Medical
DX: Z00.00 Encounter for general adult medical examination without abnormal findings (principal); A41.9 Sepsis, unspecified organism; E78.5 Hyperlipidemia, unspecified; Z12.5 Encounter for screening for malignant neoplasm of prostate
CPT/HCPCS: 36415; 80053; 80061; 83721; 84153; 84443; 85025